=== PATIENT | female | born 1935 | race Caucasian/White ===

== ENCOUNTER 2019-01-28 08:53 | Day surgery (SDC) | payer MEDICARE, MEDICAID ==
[~2019-01-28] VITALS: Ht 164.5 cm; Wt 83.6 kg
[2019-01-28 09:05] VITALS: BP 178/113
[2019-01-28] MEDS ORDERED: MIDAZolam 5mg/5ml vial ONE (09:16)
[2019-01-28] MEDS ORDERED: LIDOcaine Viscous 15ml cup ONE (09:16)
[2019-01-28] MEDS ORDERED: fentaNYL/PF 50MCG/1 ML 2ML syringe ONE (09:16)
[2019-01-28] MEDS ORDERED: CARV-49 PO (09:16)
[2019-01-28] MEDS ORDERED: ROSU20TA2 PO (09:17)
[2019-01-28] MEDS ORDERED: ENOX40SY7 SQ (09:18)
[2019-01-28] MEDS ORDERED: WARF10TA50 PO (09:18)
[2019-01-28] MEDS ORDERED: LEVO100T PO (09:19)
[2019-01-28] MEDS ORDERED: MELA3TAB64 PO (09:20)
[2019-01-28 11:04] VITALS: BP 134/81
[2019-01-28 11:14] VITALS: BP 156/70
[2019-01-28 11:24] VITALS: BP 154/80
[2019-01-28 11:34] VITALS: BP 155/70
== END 2019-01-28 11:45 | disposition home or self-care (01) ==
LOC: GI LAB 08:53
PROVIDERS: ATTEND Internal Medicine Gastroenterology
DX: R13.10 Dysphagia, unspecified (principal); K22.5 Diverticulum of esophagus, acquired; Z79.899 Other long term (current) drug therapy
CPT/HCPCS: 43235; G0500; J2250; J3010; J7040; 99152; 99153; A4620